=== PATIENT | female | born 1970 | race Caucasian/White ===

== ENCOUNTER 2016-11-04 01:13 | Emergency (ER) | payer OTHER ==
[~2016-11-04] VITALS: Ht 167.6 cm; Wt 88.5 kg
[2016-11-04 01:25] VITALS: BP 131/76
--- NOTE | 2016-11-04 01:33 | PHYS DOC ---
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 Patient is right-handed. Patient denies any other injuries. Patient has abrasion just proximal to the nailbed with him swelling and pain with range of motion. Patient has no other complaints and no other injuries. Pertinent physical exam findings: An abrasion just proximal to the right index finger nailbed, tenderness palpation ED course: 0132: X-ray right index finger ordered Pertinent results: No obvious fracture of right index finger ED medical decision making: After reviewing the chart, chief complaint, past history, history of present illness, physical exam, x-ray results pending up with the patient sustained an acute finger injury warranting further workup and admission at this time. Recommend patient follow up PCP in one to [address] a finger splint on the right index finger. Post splint palpitations the finger is neurovascular intact. Additional verbal discharge instructions were provided to the patient and that if symptoms get worse or any new symptoms arise that are worrisome to the patient she is to return to emergency room immediately. Review of Systems Review of Systems Constitutional: Denies fever or chills [] Eyes: Denies change in visual acuity, redness, or eye pain [] HENT: Denies nasal congestion or sore throat [] Respiratory: Denies cough or shortness of breath [] Cardiovascular: No additional information not addressed in HPI [] GI: Denies abdominal pain, nausea, vomiting, bloody stools or diarrhea [] : Denies dysuria or hematuria [] Musculoskeletal: Right index finger pain Integument: Denies rash or skin lesions [] Neurologic: Denies headache, focal weakness or sensory changes [] Endocrine: Denies polyuria or polydipsia [] Allergies Allergies Allergies Coded Allergies Type Severity Reaction Last Updated Verified No Known Drug Allergies 11/04/16 No Physical Exam Physical Exam Constitutional: Well developed, well nourished, no acute distress, non-toxic appearance. [] HENT: Normocephalic, atraumatic, bilateral external ears normal, oropharynx moist, no oral exudates, nose normal. [] Eyes: PERRLA, EOMI, conjunctiva normal, no discharge. [] Neck: Normal range of motion, no tenderness, supple, no stridor. [] Cardiovascular:Heart rate regular rhythm, no murmur [] Lungs & Thorax: Bilateral breath sounds clear to auscultation [] Abdomen: Bowel sounds normal, soft, no tenderness, no masses, no pulsatile masses. [] Skin: Warm, dry, no erythema, no rash. [] Back: No tenderness, no CVA tenderness. [] Extremities: Positive tenderness to palpation right index finger, abrasion just proximal to the right index finger nailbed, no cyanosis, no clubbing, ROM intact , no edema. [] Neurologic: Alert and oriented X 3, normal motor function, normal sensory function, no focal deficits noted. [] Psychologic: Affect normal, judgement normal, mood normal. [] EKG EKG [] Radiology/Procedures Radiology/Procedures Three-view x-ray of right index finger Obvious fracture [] Course & Med Decision Making Course & Med Decision Making Pertinent Labs and Imaging studies reviewed. (See chart for details) [] Dragon Disclaimer Dragon Disclaimer This electronic medical record was generated, in whole or in part, using a voice recognition dictation system. Departure Departure Impression: Primary Impression: Crushing injury of finger of right hand Disposition: 01 HOME, SELF-CARE Condition: IMPROVED Referrals: NO PCP (PCP) Patient Instructions: Crush Injury, Fingers or Toes Additional Instructions: Please follow-up with the family doctor in one to 2 days and keep the abrasion clean and dry and watch for signs of infection Problem Qualifiers Primary Impression: Crushing injury of finger of right hand Encounter type: initial encounter Qualified Codes: S67.21XA - Crushing injury of right hand, initial encounter DU CHINCHILLA DO November 04, 2016 01:33
--- NOTE | 2016-11-04 08:11 | RAD ---
Examination: 3 views of the right index finger History: History of index finger injury Comparison: None available Findings: The alignment of the second metacarpophalangeal joint, interphalangeal joints grossly appears unremarkable. Impression: There is no acute fracture or dislocation.
== END 2016-11-04 01:55 | disposition home or self-care (01) ==
LOC: ER 01:13
DX: S60.410A Abrasion of right index finger, initial encounter (principal); W23.0XXA Caught, crushed, jammed, or pinched between moving objects, initial encounter; Y93.89 Activity, other specified; Y99.8 Other external cause status; Y92.69 Other specified industrial and construction area as the place of occurrence of the external cause
CPT/HCPCS: 29130; 73140; 99284-25